=== PATIENT | female | born 1995 | race American Indian/Alaskan Native ===

== ENCOUNTER 2018-05-25 15:22 | Observation (INO) | payer OTHER ==
[2018-05-25] MEDS ORDERED: CELESTONE SOLUSPAN IM SCH (16:00)
[2018-05-25] MEDS ORDERED: LACTATED RINGERS 1,000 ML ONE (17:40)
[2018-05-25] MEDS: DECADRON IV SCH (17:43)
[2018-05-25] MEDS ORDERED: LACTATED RINGERS 500 ML IV ONE (17:44)
[2018-05-25 20:10] LABS: Bilirubin,Urine NEG (Negative); Blood,Urine NEG (Negative); Color,Urine Yellow (Yellow); Mucus,Urine FEW /HPF; Protein,Urine <15 mg/dL mg/dL (Negative); Urobilinogen,Urine < 2.0 mg/dL (<2.0)
[2018-05-25] MEDS ORDERED: DECADRON IM SCH (22:00)
--- NOTE | 2018-05-26 04:04 | History and Physical Report ---
History of Present Illness Date of examination: 05/26/18 Date of admission: 05/25/18 20:13 Chief complaint: "Sent from the clinic for injections" History of present illness: 23yo G 2 P 0 0 1 0 @ 26 weeks 6 days here from [facility] for betamethasone series secondary to positive FFN. She reports occasional cramping and positive movements but denies LOF. Past History Past Medical History: no pertinent history Past Surgical History: no surgical history Family/Genetic History: none Social history: single, lives with family, full code. denies: smoking, alcohol abuse, prescription drug abuse, IV drug use - Obstetrical History Expected Date of Delivery: 08/26/18 Actual Gestation: 26 Week(s) 6 Day(s) : 2 Para: 0 Hx # Term Pregnancies: 0 Number of Pregnancies: 0 Spontaneous Abortions: 1 Induced : 0 Number of Living Children: 0 Medications and Allergies Allergies Allergy/AdvReac Type Severity Reaction Status Date / Time No Known Allergies Allergy Verified 05/25/18 15:48 Home Medications Medication Instructions Recorded Confirmed Last Taken Type Cholecalciferol Vit D3 [Vitamin D3] 1,000 unit PO DAILY 06/06/14 06/08/14 06/07/14 14:00 History Ibuprofen [Motrin] 600 mg PO Q8H PRN #15 tablet 08/09/15 Unknown Rx cephALEXin [Keflex] 500 mg PO Q8HR #121 cap 08/09/15 Unknown Rx Active Meds: Active Medications Dexamethasone (Decadron) 6 mg IV Q12HR GREGORIO Last Admin: 05/25/18 17:43 Dose: 6 mg Documented by: Review of Systems All systems: negative - Vital Signs Vital signs: Vital Signs Temp Pulse Resp BP 98.7 F 83 20 116/63 05/25/18 16:38 05/25/18 16:38 05/25/18 16:38 05/25/18 16:38 Temp Pulse Resp BP Pulse Ox 98.7 F 81 20 103/60 05/26/18 00:00 05/26/18 02:11 05/25/18 16:38 05/26/18 02:11 - Obstetrical FHR: auscultation normal Uterine Contraction Monitor Mode: External Uterine Contraction Pattern: Absent Results All other labs normal. Assessment and Plan - Patient Problems (1) 26 weeks gestation of Current Visit: Yes Status: Acute (2) Positive fibronectin at 22 weeks to 34 weeks gestation Current Visit: Yes Status: Acute Plan to address problem: Admit to L&D for 23-hr OBS Start Dexamethasone series Anticipate discharge later today
[2018-05-26] MEDS: DECADRON IV SCH ×2 (04:43→17:14)
--- NOTE | 2018-05-26 09:24 | Progress Note ---
Subjective - Subjective Interval history: denies vaginal bleeding, loss of fluid or contractions. She reports mo vement. Objective - Vital Signs Vital Signs: Vital Signs - 12hr 05/25/18 05/26/18 05/26/18 23:13 00:00 02:11 Temperature 98.7 F Pulse Rate 88 81 Respiratory Rate Blood Pressure 120/55 103/60 Blood Pressure [Left] 05/26/18 05/26/18 05/26/18 06:38 07:48 07:54 Temperature 97.7 F Pulse Rate 82 82 82 Respiratory 15 Rate Blood Pressure 122/64 128/69 Blood Pressure 128/69 [Left] - Labs Labs: Laboratory Results - last 24 hr 05/25/18 16:40 Urine Color Yellow Urine Turbidity Clear Urine pH 7.0 Ur Specific [place] 1.009 Urine Protein <15 mg/dl Urine Glucose (UA) Neg Urine Ketones Neg Urine Blood Neg Urine Nitrite Neg Urine Bilirubin Neg Urine Urobilinogen < 2.0 Ur Leukocyte Esterase Sm Urine WBC (Auto) 1.0 Urine RBC (Auto) 1.0 U Epithel Cells (Auto) 7.0 Urine Mucus Few
[2018-05-27] MEDS ORDERED: DECADRON IM SCH (05:00)
[2018-05-27 08:32] VITALS: BP 123/66
--- NOTE | 2018-05-27 10:22 | Progress Note ---
Assessment and Plan - Patient Problems (1) 27 weeks gestation of Current Visit: Yes Status: Acute (2) Positive fibronectin at 22 weeks to 34 weeks gestation Current Visit: Yes Status: Acute Plan to address problem: Dexa completed. ladarius is asymptomatic. Will discharge her home today with precautions. F/U in office this week. Subjective - Subjective Date of service: 05/27/18 Principal diagnosis: SIUP at 27 weeks with positive FFN. Interval history: Patient is a 23 yedar old at 27 weeks gestation who was admitted for observation and steroid treatment for FLM due to positive FFN in the office. She denies any contractions, fluid leakage or bleeding. She reports good movement. She completed dexamethasone 4 doses. tracing is CAT1. Objective - Vital Signs Vital Signs: Vital Signs - 12hr 05/27/18 05/27/18 05/27/18 00:10 04:21 08:32 Temperature 98.2 F 97.5 F L Pulse Rate 67 67 85 Respiratory 16 14 Rate Blood Pressure 118/61 108/58 123/66 Blood Pressure 108/58 123/66 [Left] - Exam Cardiovascular: Normal S1, Normal S2 Lungs: Clear to auscultation Vulva: both: normal FHR: category 1 Uterine Contraction Monitor Mode: External Cervical Dilatation: 0 Deep Tendon Reflex Grade: Normal +2 - Results US- obstetric: report reviewed
== END 2018-05-27 11:00 | disposition home or self-care (01) ==
LOC: TRG 15:22 → LD 20:13
PROVIDERS: ADMIT Obstetrics & Gynecology; ATTEND Obstetrics & Gynecology
DX: O28.1 Abnormal biochemical finding on antenatal screening of mother (principal); Z3A.26 26 weeks gestation of pregnancy
CPT/HCPCS: 81001; G0378; J1100; J7120; 96372; 96374; 96376